=== PATIENT | female | born 1960 | race Caucasian/White ===

== ENCOUNTER 2020-03-27 21:03 | Emergency (ER) | payer BC ==
[~2020-03-27] VITALS: Ht 162.6 cm; Wt 84.0 kg
[2020-03-27 21:48] VITALS: BP 117/57
== END 2020-03-27 22:38 | disposition left against medical advice (07) ==
LOC: ER 21:03
DX: M25.572 Pain in left ankle and joints of left foot (principal); Z53.21 Procedure and treatment not carried out due to patient leaving prior to being seen by health care provider

== ENCOUNTER 2020-03-31 11:41 | Emergency (ER) | payer BC ==
[~2020-03-31] VITALS: Ht 162.6 cm; Wt 84.0 kg
[2020-03-31 11:55] VITALS: BP 105/58
--- NOTE | 2020-03-31 13:34 | RAD ---
PROCEDURE: FOOT LEFT 3V, ANKLE LEFT 3V, TIBIA FIBULA LEFT STUDY DATE: 03/31/2020 CLINICAL INDICATION / HISTORY: Reason: pain, bruising / Spl. Instructions: / History: . TECHNIQUE: Left ankle 3 views. COMPARISON: None FINDINGS: The ankle mortise is approximated, and the talar dome is unremarkable. The joint space widths are maintained. No fracture or dislocation is identified. Mild diffuse soft tissue swelling is appreciated. Calcification in the subcutaneous fat along the medial left ankle is incidentally noted IMPRESSION: No acute osseous abnormality in the left ankle. Diffuse soft tissue swelling is present around the ankle, possibly reflecting cellulitis. PROCEDURE: FOOT LEFT 3V, ANKLE LEFT 3V, TIBIA FIBULA LEFT STUDY DATE: 03/31/2020 CLINICAL INDICATION / HISTORY: Reason: pain, bruising / Spl. Instructions: / History: . TECHNIQUE: AP, lateral and oblique views of the left foot. COMPARISON: None FINDINGS: No fracture or dislocation is identified. The bone density is normal. Minimal osteophytic spurring in the mid foot is present. The joint space widths are maintained, and there are no erosions to suggest an inflammatory arthropathy. No soft tissue abnormality is seen. Small calcaneal spur also noted. IMPRESSION: Mild left midfoot degenerative changes at the calcaneal spur. No acute osseous abnormality. PROCEDURE: FOOT LEFT 3V, ANKLE LEFT 3V, TIBIA FIBULA LEFT STUDY DATE: 03/31/2020 CLINICAL INDICATION / HISTORY: Reason: pain, bruising / Spl. Instructions: / History: . TECHNIQUE: AP and lateral views of the left tibia and fibula. COMPARISON: None FINDINGS: AP and lateral views of the left tibia and fibula show no acute fracture, dislocation or bone destruction. The soft tissues show mild soft tissue stranding in the subcutaneous fat.. IMPRESSION: Normal left tibia and fibula. Electronically signed by: Deneen Mcclellan MD (03/31/2020 1:31 PM) [id number]
[2020-03-31] MEDS ORDERED: HYDR-3164 PO (13:39)
--- NOTE | 2020-03-31 13:40 | PHYS DOC ---
Past Medical History Past Medical History: Other Additional Past Medical Histor: BLADDER CA 8 YRS AGO Past Surgical History: Other Additional Past Surgical Histo: BLADDER TUMOR Smoking Status: Never Smoker Alcohol Use: None General Adult EDM: Chief Complaint: ANKLE PROBLEM HPI: HPI: Patient is a 59 year old female who presents with 5 weeks ago was going down some stairs when she stepped with her left foot wrong on the stair and rolled her ankle. Patient states she is been using RICE and Aleve help with the pain but she is still been working her 12-hour shifts and walking on it. She states she has noticed increased swelling especially after shifts. She states she is having pain in the left heel of her foot, lateral portion of her foot and ankle and at times it is sharp and radiates up into the mid anterior tib-fib. Patient states that the pain is not there all the time but it is mainly there at night after she has been up and walking on it. Patient currently rates her pain a 6 out of 10. Patient has a history of bladder cancer. Review of Systems: Review of Systems: Constitutional: Denies fever or chills. [] Eyes: Denies change in visual acuity. [] HENT: Denies nasal congestion or sore throat. [] Respiratory: Denies cough or shortness of breath. [] Cardiovascular: Denies chest pain. +Ankle and foot 2+ edema. [] GI: Denies abdominal pain, nausea, vomiting, bloody stools or diarrhea. [] : Denies dysuria. [] Musculoskeletal: Denies back pain. +Left ankle, foot, tib-fib joint pain. [] Integument: Denies rash. +Fading bruising to foot and ankle. [] Neurologic: Denies headache, focal weakness or sensory changes. [] Endocrine: Denies polyuria or polydipsia. [] Lymphatic: Denies swollen glands. [] Psychiatric: Denies depression or anxiety. [] Heart Score: Risk Factors: Risk Factors: DM, Current or recent (<one month) smoker, HTN, HLP, family history of CAD, obesity. Risk Scores: Score 0 - 3: 2.5% MACE over next 6 weeks - Discharge Home Score 4 - 6: 20.3% MACE over next 6 weeks - Admit for Clinical Observation Score 7 - 10: 72.7% MACE over next 6 weeks - Early Invasive Strategies Allergies: Allergies: Allergies Coded Allergies Type Severity Reaction Last Updated Verified No Known Drug Allergies 03/27/20 No Physical Exam: PE: Constitutional: Well developed, well nourished, no acute distress, non-toxic appearance. [] HENT: Normocephalic, atraumatic, bilateral external ears normal, oropharynx moist, no oral exudates, nose normal. [] Eyes: PERRLA, EOMI, conjunctiva normal, no discharge. [] Neck: Normal range of motion, no tenderness, supple, no stridor. [] Cardiovascular:Heart rate regular rhythm, no murmur [] Lungs & Thorax: Bilateral breath sounds clear to auscultation [] Abdomen: Bowel sounds normal, soft, no tenderness, no masses, no pulsatile masses. [] Skin: Warm, dry, no erythema, no rash. Fading bruising to left dorsal foot and lateral ankle [] Back: No tenderness, no CVA tenderness. [] Extremities: Left lateral ankle tenderness, no cyanosis, no clubbing, ROM intact, ankle 2+ edema. [] Neurologic: Alert and oriented X 3, normal motor function, normal sensory function, no focal deficits noted. [] Psychologic: Affect normal, judgement normal, mood normal. [] Current Patient Data: Vital Signs: Vital Signs Date Time Temp Pulse Resp B/P (MAP) Pulse Ox O2 Delivery O2 Flow Rate FiO2 03/31/20 11:55 98.4 57 17 105/58 (74) 98 Room Air 98.4 EKG: EKG: [] Radiology/Procedures: Radiology/Procedures: [] Impression: [facility] [address] [place] [address] IMAGING REPORT Signed PATIENT: YOSHI CUBA ACCOUNT: [id number] : 1960 LOCATION: ER AGE: 59 SEX: F EXAM STATUS: REG ER ORD. PHYSICIAN: NON,STAFF REASON: swelling, injury x5 weeks PROCEDURE: TIBIA FIBULA LEFT PROCEDURE: FOOT LEFT 3V, ANKLE LEFT 3V, TIBIA FIBULA LEFT STUDY DATE: 03/31/2020 CLINICAL INDICATION / HISTORY: Reason: pain, bruising / Spl. Instructions: / History: . TECHNIQUE: Left ankle 3 views. COMPARISON: None FINDINGS: The ankle mortise is approximated, and the talar dome is unremarkable. The joint space widths are maintained. No fracture or dislocation is identified. Mild diffuse soft tissue swelling is appreciated. Calcification in the subcutaneous fat along the medial left ankle is incidentally noted IMPRESSION: No acute osseous abnormality in the left ankle. Diffuse soft tissue swelling is present around the ankle, possibly reflecting cellulitis. PROCEDURE: FOOT LEFT 3V, ANKLE LEFT 3V, TIBIA FIBULA LEFT STUDY DATE: 03/31/2020 CLINICAL INDICATION / HISTORY: Reason: pain, bruising / Spl. Instructions: / History: . TECHNIQUE: AP, lateral and oblique views of the left foot. COMPARISON: None FINDINGS: No fracture or dislocation is identified. The bone density is normal. Minimal osteophytic spurring in the mid foot is present. The joint space widths are maintained, and there are no erosions to suggest an inflammatory arthropathy. No soft tissue abnormality is seen. Small calcaneal spur also noted. IMPRESSION: Mild left midfoot degenerative changes at the calcaneal spur. No acute osseous abnormality. PROCEDURE: FOOT LEFT 3V, ANKLE LEFT 3V, TIBIA FIBULA LEFT STUDY DATE: 03/31/2020 CLINICAL INDICATION / HISTORY: Reason: pain, bruising / Spl. Instructions: / History: . TECHNIQUE: AP and lateral views of the left tibia and fibula. COMPARISON: None FINDINGS: AP and lateral views of the left tibia and fibula show no acute fracture, dislocation or bone destruction. The soft tissues show mild soft tissue stranding in the subcutaneous fat.. IMPRESSION: Normal left tibia and fibula. Electronically signed by: Chris Mcclellan MD (03/31/2020 1:31 PM) [id number] DICTATED and SIGNED BY: CHRIS MCCLELLAN MD DATE: 03/31/20 1331 Course & Med Decision Making: Course & Med Decision Making Pertinent Labs and Imaging studies reviewed. (See chart for details) See HPI. There is bruising to the lateral ankle and foot that appears to be old bruising and is starting to fade. Tenderness to the lateral ankle only. Full range of motion of the ankle, toes. No deformities or laxities in any joints. There is 2+ swelling to the ankle. Pedal pulses strong and present. Skin pink warm and dry. Cap refills less than 2 seconds. Ambulatory with a steady gait. Patient is placed in a walking boot. X-ray show no acute finding. Patient is referred to Dr. Fierro as soon as possible. [] Angi Disclaimer: Angi Disclaimer: This electronic medical record was generated, in whole or in part, using a voice recognition dictation system. Departure Departure Impression: Primary Impression: Fall Qualified Codes: W19.XXXA - Unspecified fall, initial encounter Additional Impressions: Ankle pain, left Qualified Codes: M25.572 - Pain in left ankle and joints of left foot Foot pain, left Disposition: 01 DC HOME SELF CARE/HOMELESS Condition: STABLE Referrals: SANDRA DUARTE MD (PCP) STEVEN FIERRO MD Patient Instructions: Ankle Sprain, Foot Contusion, Foot Sprain, Heel Spur Additional Instructions: Follow-up with orthopedics as soon as possible. Take medication as prescribed and with food. Do not drive or drink alcohol or work on this medication as it will make you sleepy. You can continue taking NSAIDs with this pain medication just do not take more Tylenol with his pain medication. Continue to use ice, heat, elevation and rest. Scripts Hydrocodone/Apap 5-325 (NORCO 5-325 TABLET) 1 Each Tablet 1 TAB PO PRN Q6HRS PRN for PAIN, #10 TAB 0 Refills Prov: TOM SOLIZ APRN 03/31/20 TOM SOLIZ APRN Mar 31, 2020 13:40
== END 2020-03-31 14:38 | disposition home or self-care (01) ==
LOC: ER 11:41
DX: S90.02XA Contusion of left ankle, initial encounter (principal); S90.32XA Contusion of left foot, initial encounter; M77.32 Calcaneal spur, left foot; W10.8XXA Fall (on) (from) other stairs and steps, initial encounter; Y93.89 Activity, other specified; Y92.89 Other specified places as the place of occurrence of the external cause; Y99.8 Other external cause status
CPT/HCPCS: 73590; 73610; 73630; 99284